=== PATIENT | female | born 1945 | race Caucasian/White ===

== ENCOUNTER 2019-10-04 06:33 | Day surgery (SDC) | payer MEDICARE ==
[~2019-10-04] VITALS: Ht 147.3 cm; Wt 63.5 kg
[~2019-10-04 06:33] MED LIST: ACETAMINOPHEN 325 MG TAB PO PRN
[2019-10-04] MEDS ORDERED: METF500T13 (06:57)
[2019-10-04] MEDS ORDERED: TROPICAMIDE 1% OPHTH SOLN 2ML OS ONE (07:00)
[2019-10-04] MEDS ORDERED: OFLOXACIN 0.3 % (OCUFLOX) OPTH SOL 5ML OS ONE (07:00)
[2019-10-04] MEDS ORDERED: PHENYLEPHRINE HCL 10 % OPHTH. SOL 5ML OS PRN (07:00)
[2019-10-04] MEDS ORDERED: LIDOCAINE 3.5 % 1ML OPHTH TOPICAL GEL OU ONE (07:00)
[2019-10-04] MEDS ORDERED: CYCLOPENTOLATE 2% OPHTH SOLN 2ML BTL OS ONE (07:00)
[2019-10-04] MEDS ORDERED: PHENYLEPHRINE 2.5% OPHTH SOL 2ML OS ONE (07:00)
[2019-10-04] MEDS ORDERED: PROPARACAINE 0.5% OPHTH SOL 15ML OS PRN (07:01)
[2019-10-04] MEDS ORDERED: fentaNYL 100 MCG/2 ML INJECTION (J3010) As Ordered ONE (07:09)
[2019-10-04] MEDS ORDERED: MIDAZOLAM INJ 2MG/2ML VIAL (J2250 PER 1MG) As Ordered ONE (07:09)
[2019-10-04] MEDS ORDERED: POVIDONE-IODINE 5% OPHTH PREP SOL 30ML As Ordered ONE (07:42)
[2019-10-04] MEDS ORDERED: mitoMYcin 0.2 MG/VIAL KIT FOR OPHTHALMIC USE (J7315 PER 0.2MG) As Ordered ONE (07:42)
[2019-10-04] MEDS ORDERED: LIDOCAINE 1% SDV 5ML VIAL As Ordered ONE (07:44)
[2019-10-04] MEDS ORDERED: HEALON DUET PRO(HEALON 10MG/ML 0.55ML & HEALON ENDOCOAT 30MG/ML 0.85ML) As Ordered ONE (07:44)
[2019-10-04] MEDS ORDERED: CEFUROXIME 1MG/0.1ML INTRACAMERAL INJ As Ordered ONE (07:45)
[2019-10-04] MEDS ORDERED: BALANCED SALT IRRIGATION SOLUTION 500ML BAG (FOR OR EYE MACHINE) As Ordered ONE (07:48)
[2019-10-04] MEDS ORDERED: TRYPAN BLUE 0.06 % 2.25 ML OPHTH SYR (VISIONBLUE) As Ordered ONE (07:56)
[2019-10-04] MEDS ORDERED: LIDOCAINE 2% W/EPIN INJ 20ML **PRES FREE As Ordered ONE (08:12)
[2019-10-04] MEDS ORDERED: ONDANSETRON 4MG/2ML VIAL (J2405 PER 1MG) IV PRN (08:45)
--- NOTE | 2019-10-04 08:50 | RO ---
DATE OF PROCEDURE: 10/04/2019 PREPROCEDURE DIAGNOSIS: Phacolytic glaucoma and hypermature lens, left eye. POSTPROCEDURE DIAGNOSIS: Phacolytic glaucoma and hypermature lens, left eye. PROCEDURE: Phacoemulsification posterior chamber intraocular lens implantation, capsule stain with the Vision Blue and XEN implant, left eye. SURGEON: Dr. Ida Rodriguez ANGIOGRAPHER: ANESTHESIA: Topical sedation. DESCRIPTION OF PROCEDURE: Patient was prepped and draped in the usual fashion. Lid speculum was placed in the lid. The eye was fixated. A stab incision was made in the anterior chamber. 1% nonpreserved lidocaine was instilled and viscoelastic instilled. The eye was refixated and a 2.4 mm keratome was used to make a clear corneal temporal limbal incision. More viscoelastic was used to break the iridal lenticular synechia and then the eye was refilled with a little bit more viscoelastic. Vision Blue was injected underneath the viscoelastic on top of the lens capsule. Capsulorrhexis was then begun with a cystotome and carried out in circular fashion with capsulorrhexis forceps. The lens capsule was well visualized since it was stained now. The lens was hydrodissected and the phacoemulsification used to groove the nucleus into two meridians. The nucleus was cracked into four quadrants. Each quadrant was removed with the phacoemulsification unit. Any remaining cortex was removed with the irrigation and aspiration (I and A) unit. Then a posterior chamber intraocular lens 23.0 diopters was inserted into the capsular bag with no difficulty. The eye was refilled with viscoelastic 1% nonpreserved with epinephrine lidocaine was injected subconjunctivally in the superior nasal quadrant. Then mitomycin was injected in the same area. The XEN was then placed through the anterior chamber through the original incision into the trabecula meshwork and visualized under the conjunctiva. The implant was advanced and in good position. The office spec was removed. Viscoelastic was removed and the wound was hydrated and cefuroxime was instilled. Patient tolerated the procedure well and left the recovery room in stable condition.
[2019-10-04] MEDS ORDERED: KETOROLAC 0.5% OPHTH SOLN OS ONE (09:00)
[2019-10-04] MEDS ORDERED: AcetaZOLAMIDE 500 MG ER CAP PO ONE (09:00)
[2019-10-04] MEDS ORDERED: TRIMETHOBENZAMIDE 300 MG CAP PO PRN (09:00)
[2019-10-04 10:15] VITALS: BP 145/90
== END 2019-10-04 10:15 | disposition home or self-care (01) ==
LOC: M SDC 06:33
PROVIDERS: ATTEND Ophthalmology
DX: H25.22 Age-related cataract, morgagnian type, left eye (principal); H40.812 Glaucoma with increased episcleral venous pressure, left eye; E11.9 Type 2 diabetes mellitus without complications; Z79.84 Long term (current) use of oral hypoglycemic drugs; Z79.899 Other long term (current) drug therapy
CPT/HCPCS: 66183; 66984; 92015; C1783; J2250; J3010; J7315; V2632

== ENCOUNTER 2022-03-30 06:41 | Day surgery (SDC) | payer MEDICARE ==
[~2022-03-30] VITALS: Ht 157.5 cm; Wt 65.8 kg
[~2022-03-30 06:41] MED LIST changes: -ACETAMINOPHEN 325 MG TAB PO PRN; +BRIM0.2S13 OU; +BSS IRRIG/VANCO(10MG)/TOBRA(5MG)/EPINEPH(1:1000-0.5CC)500ML BAG-ORONLY IR ONE; +CYCLOPENTOLATE 1% OPHTH SOLN 2 ML BTL OD SCH; +LATA0.0015 OU; +LIDOCAINE 3.5 % 1ML OPHTH TOPICAL GEL OU ONE; +METF500T13 PO; +OFLOXACIN 0.3 % (OCUFLOX) OPTH SOL 5ML OD ONE; +PHENYLEPHRINE 2.5% OPHTH SOL 2ML OD SCH; +PHENYLEPHRINE HCL 10 % OPHTH. SOL 5ML OD PRN; +TIMO0.5S29 OU; +TROPICAMIDE 1% OPHTH SOLN 2ML OD SCH; +VITA500T41 PO; +VITMTA PO
[2022-03-30] MEDS ORDERED: CEFUROXIME 1MG/0.1ML INTRACAMERAL INJ As Ordered ONE (06:55)
[2022-03-30] MEDS ORDERED: LIDOCAINE 1% SDV 5ML VIAL As Ordered ONE (06:55)
[2022-03-30] MEDS ORDERED: MIDAZOLAM INJ 2MG/2ML VIAL (J2250 PER 1MG) As Ordered ONE (09:02)
[2022-03-30] MEDS ORDERED: propofoL 200 MG/20 ML VIAL As Ordered ONE (09:02)
[2022-03-30] MEDS ORDERED: fentaNYL 100 MCG/2 ML INJECTION As Ordered ONE (09:02)
[2022-03-30 09:30] VITALS: BP 191/77
== END 2022-03-30 09:44 | disposition home or self-care (01) ==
LOC: M SDC 06:41
PROVIDERS: ATTEND Ophthalmology
DX: H25.11 Age-related nuclear cataract, right eye (principal); H40.9 Unspecified glaucoma
CPT/HCPCS: 66984; J0697; J2250; J3010; V2632